=== PATIENT | female | born 1980 | race African-American/Black ===

== ENCOUNTER 2017-08-12 09:47 | Emergency (ER) | payer OTHER ==
[~2017-08-12] VITALS: Ht 170.2 cm; Wt 124.0 kg
[~2017-08-12 09:47] MED LIST: CYMBALTA60 MG PO; HUMALOG100 UNIT/1 SC; HUMULIN N100 UNITS/ SC; IBUPROFEN800 MG PO; LISINOPRIL10 MG PO; METFORMIN HCL500 MG PO; OXYCODONE-APAP1 EACH PO; PRENATAL TABLE1 EAC3 PO; TRANDATE100 MG PO; ZYRTEC10 M3 PO
[2017-08-12 11:26] LABS: HEMATOCRIT 39.6 % (36.0-46.0); MCH 27.1 PG (29.0-34.0); MCHC 33.8 G/DL (30.0-36.0); MEAN PLAT.VOLUME 9.7 uM^3 (9.5-12.4); PLATELET COUNT 290 K/uL (156-360); RBC DIS.WIDTH-CV 13.3 % (11.8-14.6); RBC DIS.WIDTH-SD 38.1 % (39-53); RED BLOOD COUNT 4.95 M/uL (3.80-5.20); WHITE BLOOD COUNT 7.4 K/uL (4.1-10.2)
[2017-08-12 11:36] LABS: CHLORIDE 106 mEq/L (99-109); POTASSIUM 4.2 mEq/L (3.7-5.4); SODIUM 139 mEq/L (136-147)
[2017-08-12 11:37] LABS: GLUCOSE 113 mg/dL (70-99)
[2017-08-12 11:39] LABS: ANION GAP 10 MEQ/L (2-14)
[2017-08-12 11:41] LABS: GFR ESTIMATE (CALCULATED) > 59 mL/min/; SERUM ETHYL ALCOHOL < 10 mg/dL
[2017-08-12 11:42] LABS: UREA NITROGEN (BUN) 15 mg/dL (9-23)
[2017-08-12 12:43] VITALS: BP 177/117
== END 2017-08-12 12:44 | disposition home or self-care (01) ==
LOC: EME 09:47
DX: F32.9 Major depressive disorder, single episode, unspecified (principal); F41.9 Anxiety disorder, unspecified
CPT/HCPCS: 80048; 85027; 90839; 99281; 99285; G0480